=== PATIENT | female | born 1975 ===

== ENCOUNTER 2020-10-09 15:06 | Outpatient (CLI) | payer MEDICAID ==
[2020-10-09 20:22] LABS: HGB - HEMOGLOBIN 14.5 g/dL (12.0-16.0); MEAN CORPUSCULAR HGB CONC 33.2 g/dL (32.0-36.0); MEAN CORPUSCULAR VOLUME 90.3 fL (81.0-99.0); MEAN PLATELET VOLUME 10.4 fL (7.9-10.8); RED BLOOD COUNT 4.84 10^6/uL (4.20-5.40); RED CELL DISTRIBUTION WIDTH 12.3 % (12.0-15.0); WHITE BLOOD COUNT 7.1 x10^3/uL (4.8-10.8)
[2020-10-09 20:39] LABS: ALBUMIN 4.8 g/dL (3.2-5.5); ALBUMIN/GLOBULIN RATIO 1.8 (1.0-2.2); BILIRUBIN,TOTAL 0.6 mg/dL (0.2-1.0); CALCIUM 9.3 mg/dL (8.5-10.3); CREATININE 0.8 mg/dL (0.4-1.0); TOTAL PROTEIN 7.4 g/dL (6.7-8.2)
== END 2020-10-09 15:07 | disposition home or self-care (01) ==
LOC: LAB.S 15:06
PROVIDERS: ATTEND Obstetrics & Gynecology
DX: Z00.00 Encounter for general adult medical examination without abnormal findings (principal); R11.0 Nausea; D51.3 Other dietary vitamin B12 deficiency anemia; R45.4 Irritability and anger; Z13.1 Encounter for screening for diabetes mellitus; Z13.21 Encounter for screening for nutritional disorder; R53.83 Other fatigue; D64.9 Anemia, unspecified
CPT/HCPCS: 36415; 80053; 82306; 82607; 83036; 84144; 84443; 85027

== ENCOUNTER 2021-04-14 07:39 | Emergency (ER) | payer MEDICAID ==
[2021-04-14] MEDS ORDERED: SODIUM CHLORIDE 0.9% 1,000 ML IV STA (08:17)
[2021-04-14] MEDS ORDERED: DEXAMETHASONE 10 MG/ML VIAL IVP STA (08:19)
[2021-04-14] MEDS ORDERED: MECLIZINE 12.5 MG TABLET PO STA ×2 (08:19→09:49)
[2021-04-14] MEDS ORDERED: diazePAM INJ 5 MG/ML SYRINGE IVP STA ×2 (08:19→09:49)
--- NOTE | 2021-04-14 08:20 | ED Physician Documentation ---
PD HPI HEENT - Stated complaint Stated Complaint: DIZZINESS - Chief complaint Chief Complaint: Neuro - History obtained from History obtained from: Patient - History of Present Illness Timing - onset: Yesterday Timing - details: Gradual onset (she was gardening and noted some feeling of vertigo with postion change. This worsened gradually and she stopped. Rest improved symptoms, but worse with getting up and eye/head movement. No change with OTC allergy meds (Benadryl nor Zyrtec). No prior similar.), Still present (was improved with holding head still and eyes closed. No weaknesses nor feeling of oncoordination with arm/hand movement nor leg movement. Off balance with walking due to vertigo. No focal weakness. She felt okay sleeping last night and abruptly worse when got up this morning, severe symptoms.), Waxing and waning Location: Other (denies headache. has some mild congestion due to pollen/allergies. No URI per se.) Associated symptoms: No: Fever, Congestion, Headache Similar symptoms before: Has not had sx before Recently seen: Not recently seen Review of Systems Constitutional: denies: Fever Ears: denies: Loss of hearing, Ear pain, Drainage/discharge, Tinnitus/ringing Nose: reports: Sinus pressure / pain. denies: Rhinorrhea / runny nose, Congestion Throat: denies: Sore throat Cardiac: denies: Chest pain / pressure, Palpitations Musculoskeletal: denies: Neck pain, Back pain Neurologic: denies: Generalized weakness, Focal weakness, Numbness, Near syncope, Altered mental status, Headache PD PAST MEDICAL HISTORY - Past Medical History Past Medical History: No - Past Surgical History Past Surgical History: No - Present Medications Home Medications: Ambulatory Orders Medication Instructions Recorded Confirmed Meclizine HCl [Antivert] 1 tablet PO Q6H PRN #30 tab 04/14/21 dexAMETHasone [Decadron] 4 mg PO DAILY #5 tablet 04/14/21 diazePAM [Valium] 5 mg PO Q8H PRN #10 tablet 04/14/21 - Allergies Allergies/Adverse Reactions: Allergies Allergy/AdvReac Type Severity Reaction Status Date / Time No Known Drug Allergies Allergy Verified 04/14/21 08:02 - Social History Does the pt smoke?: No Smoking Status: Never smoker Does the pt drink ETOH?: Yes Does the pt have substance abuse?: No PD ED PE NORMAL - Vitals Vital signs reviewed: Yes - General General: Alert and oriented X 3, Well developed/nourished - HEENT HEENT: PERRL, EOMI (marked nystagmus with eye and head movement, mainly to the left. Present some even with head held still. 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, No motor deficit, No sensory deficit, Normal speech, Other Eye Opening: Spontaneous Motor: Obeys Commands Verbal: Oriented GCS Score: 15 Results - Vitals Vitals: Vital Signs - 24 hr 04/14/21 04/14/21 04/14/21 07:50 08:06 08:30 Temperature 37.1 C Heart Rate 59 L 63 56 L Respiratory 16 13 10 L Rate Blood Pressure 133/78 H 124/79 108/65 O2 Saturation 100 100 100 04/14/21 04/14/21 04/14/21 09:00 09:10 10:06 Temperature Heart Rate 59 L 61 67 Respiratory 14 15 13 Rate Blood Pressure 106/69 106/69 102/71 O2 Saturation 100 98 100 04/14/21 04/14/21 04/14/21 10:30 11:00 11:56 Temperature Heart Rate 60 58 L 66 Respiratory 16 16 16 Rate Blood Pressure 103/66 111/68 117/72 O2 Saturation 100 99 100 04/14/21 12:00 Temperature Heart Rate 61 Respiratory 18 Rate Blood Pressure 104/76 O2 Saturation 100 Oxygen O2 Source Room air - Labs Labs: Laboratory Tests 04/14/21 04/14/21 08:18 08:18 WBC 4.3 L RBC 4.75 Hgb 14.1 Hct 43.5 MCV 91.6 MCH 29.7 MCHC 32.4 RDW 12.6 Plt Count 253 MPV 10.3 Neut # (Auto) 3.0 Lymph # (Auto) 0.7 L [place] # (Auto) 0.4 Eos # (Auto) 0.1 Baso # (Auto) 0.1 Absolute Nucleated RBC 0.00 Nucleated RBC % 0.0 Sodium 140 Potassium 4.7 Chloride 103 Carbon Dioxide 28 Anion Gap 9.0 BUN 10 Creatinine 0.8 Estimated GFR (MDRD) 77 L Glucose 97 Calcium 9.2 Magnesium 2.1 Total Bilirubin 1.0 AST 27 ALT 26 Alkaline Phosphatase 70 Total Protein 7.3 Albumin 4.5 Globulin 2.8 Albumin/Globulin Ratio 1.6 Lipase 27 PD MEDICAL DECISION MAKING - ED course Complexity details: reviewed results, re-evaluated patient (Prolonged ER course for patient to improve on symptoms. She had a couple of doses of antivertigo medications along with some fluids and is feeling improved enough for sitting up and moving around and able to go home.), considered differential (The patient has nystagmus with eye movement and positional vertigo that dampens at rest. Good coordination with hand and leg movement. No other neuro symptoms. No trauma or head injury. No head cold. Some seasonal allergies and was gardening yesterday before onset. Sounds peripheral vertigo. ), d/w patient Departure - Departure Disposition: Home, Self Care Clinical Impression: Acute severe vertigo Acute labyrinthitis Qualifiers: Laterality: unspecified laterality Qualified Code(s): H83.09 - Labyrinthitis, unspecified ear Condition: Stable Record reviewed to determine appropriate education?: Yes Instructions: ED Labyrinthitis, ED Vertigo Unspecified Prescriptions: Meclizine HCl [Antivert] 1 tablet PO Q6H PRN #30 tab PRN Reason: Vertigo dexAMETHasone [Decadron] 4 mg PO DAILY #5 tablet diazePAM [Valium] 5 mg PO Q8H PRN #10 tablet PRN Reason: Vertigo Comments: This sounds like a dysfunction of your inner ear and presume some inflammation related to allergies or environment. As such I would anticipate improvement through the day today and over the next 2 or 3 days. Move slow and easy with minimal quick head position or stooping over. Decadron steroid anti-inflammatory daily for the next 3 to 5 days until feeling all better. Meclizine antivertigo medication every 6-8 hours for vertigo symptoms. Diazepam if needed for worse vertigo symptoms. Both of these medicines will make you some sleepy so no driving ladders etc. particularly with the diazepam. You should be doing that with this dizziness anyway. As you are feeling improved enough, then activity as tolerated. Recheck if not improved well and resolved over the next 3 to 5 days. Discharge Date/Time: 04/14/21 12:07
[2021-04-14 08:32] LABS: BASOPHILS # (AUTO) 0.1 10^3/uL (0.0-0.1); BASOPHILS % (AUTO) 1.2 %; EOSINOPHILS # (AUTO) 0.1 10^3/uL (0.0-0.7); EOSINOPHILS % (AUTO) 1.6 %; HCT - HEMATOCRIT 43.5 % (37.0-47.0); HGB - HEMOGLOBIN 14.1 g/dL (12.0-16.0); LYMPHOCYTES # (AUTO) 0.7 10^3/uL (1.5-3.5); LYMPHOCYTES % (AUTO) 17.2 %; MEAN CORPUSCULAR HEMOGLOBIN 29.7 pg (27.0-31.0); MEAN CORPUSCULAR HGB CONC 32.4 g/dL (32.0-36.0); MEAN CORPUSCULAR VOLUME 91.6 fL (81.0-99.0); MEAN PLATELET VOLUME 10.3 fL (7.9-10.8); MONOCYTES # (AUTO) 0.4 10^3/uL (0.0-1.0); MONOCYTES % (AUTO) 8.2 %; NEUTROPHILS % (AUTO) 71.6 %; PLT - PLATELET COUNT 253 10^3/uL (130-450); RED BLOOD COUNT 4.75 10^6/uL (4.20-5.40); RED CELL DISTRIBUTION WIDTH 12.6 % (12.0-15.0); WHITE BLOOD COUNT 4.3 x10^3/uL (4.8-10.8)
[2021-04-14 08:50] LABS: ALBUMIN 4.5 g/dL (3.2-5.5); ALBUMIN/GLOBULIN RATIO 1.6 (1.0-2.2); CALCIUM 9.2 mg/dL (8.5-10.3); CREATININE 0.8 mg/dL (0.4-1.0); MAGNESIUM 2.1 mg/dL (1.7-2.8); POTASSIUM 4.7 mmol/L (3.5-5.0); TOTAL PROTEIN 7.3 g/dL (6.7-8.2)
[2021-04-14 12:21] VITALS: BP 104/76
== END 2021-04-14 12:07 | disposition home or self-care (01) ==
LOC: ED 07:39
DX: R42 Dizziness and giddiness (principal); H83.09 Labyrinthitis, unspecified ear
CPT/HCPCS: 36415; 80053; 83690; 83735; 85025; 96374; 96375; 96376; 99284; A9270

== ENCOUNTER 2023-04-22 08:45 | Outpatient (CLI) | payer OTHER ==
--- NOTE | 2023-04-22 11:33 | Mammography Report ---
BILATERAL DIGITAL SCREENING MAMMOGRAM 3D/2D WITH EXAGGERATED CC: 04/22/2023 CLINICAL: Routine screening. Baseline exam. Family history of breast cancer. No prior exams were available for comparison. Both breasts are extremely dense, which lowers the sensitivity of mammography (category d />75% gland ular tissue). No significant masses, calcifications, or other findings are seen in either breast. IMPRESSION: NEGATIVE There is no mammographic evidence of malignancy. A 1 year screening mammogram is recommended. Based on Tyrer-Cuzick model (a risk assessment model), the patient's lifetime risk is 20.3% and her 1 0 year risk is 4.8%. If a patient has an elevated risk, a more comprehensive evaluation should be con sidered and/or a referral to a genetic counselor. The [employer], [employer], and NCCN Guidelines advise the consideration of Breast MRI as an adjunct to screening mammog kevin in patients whose "Lifetime risk to develop breast cancer" is 20% or higher. This exam was interpreted at Station ID: [id number]. NOTE: For mammograms, a report in lay terms will be sent to the patient. Approximately 15% of breast malignancies will not be visualized mammographically. In the management of a palpable breast mass, a negative mammogram must not discourage biopsy of a clinically suspicious lesion. Electronically Signed By: Lindsey callahan/jenna:04/22/2023 11:02:51 letter sent: No_Letter ACR BI-RADS Category 1: Negative 3341F PARENCHYMAL PATTERN: (VD) - The breast(s) demonstrate(s) extremely dense parenchyma, limiting the sen sitivity of mammography. BI-RADS CATEGORY: (1) - 1 Mammogram [id number] 1 year screening LATERALITY: (B)
== END 2023-04-22 08:46 | disposition home or self-care (01) ==
LOC: DI.S 08:45
PROVIDERS: ATTEND Naturopath
DX: Z12.31 Encounter for screening mammogram for malignant neoplasm of breast (principal); Z80.3 Family history of malignant neoplasm of breast